=== PATIENT | female | born 1995 | race Caucasian/White ===

== ENCOUNTER 2018-01-27 23:18 | Emergency (ER) | payer BC ==
[~2018-01-27] VITALS: Ht 165.1 cm; Wt 49.0 kg
[2018-01-27] MEDS ORDERED: AMBIEN 10 MG TA10 MG PO (23:33)
[2018-01-27] MEDS ORDERED: SERTRALINE HCL50 MG PO (23:34)
[2018-01-27] MEDS ORDERED: ACYCLOVIR 400400 MG PO (23:34)
[2018-01-27] MEDS ORDERED: BUSPIRONE HCL10 MG PO (23:35)
[2018-01-28] MEDS ORDERED: AUGMENTIN 500-1 EACH PO (02:29)
[2018-01-28 02:40] VITALS: BP 107/67
== END 2018-01-28 02:49 | disposition home or self-care (01) ==
LOC: ER 23:18
DX: S61.412A Laceration without foreign body of left hand, initial encounter (principal); S61.512A Laceration without foreign body of left wrist, initial encounter; W54.0XXA Bitten by dog, initial encounter; Y93.89 Activity, other specified; Y92.89 Other specified places as the place of occurrence of the external cause; Y99.8 Other external cause status